=== PATIENT | female | born 1990 | race Caucasian/White ===

== ENCOUNTER 2016-04-05 10:00 | Outpatient (CLI) | payer OTHER | END 2016-04-05 10:01 | disposition home or self-care (01) | DX: R35.0 Frequency of micturition (principal); N89.8 Other specified noninflammatory disorders of vagina; R30.0 Dysuria ==

== ENCOUNTER 2016-04-16 19:05 | Emergency (ER) | payer OTHER | END 2016-04-16 19:47 | disposition home or self-care (01) | DX: N61.0 Mastitis without abscess (principal); Z87.891 Personal history of nicotine dependence ==

== ENCOUNTER 2022-05-02 14:40 | Outpatient (CLI) | payer OTHER | END 2022-05-02 23:59 | disposition critical access hospital (66) | LOC: EMS 14:40 | DX: K12.0 Recurrent oral aphthae (principal); R00.0 Tachycardia, unspecified; R42 Dizziness and giddiness; Z72.820 Sleep deprivation; F41.9 Anxiety disorder, unspecified | CPT/HCPCS: A0425; A0429 ==

== ENCOUNTER 2022-05-02 14:55 | Emergency (ER) | payer OTHER ==
[2022-05-02] MEDS ORDERED: ONDANSETRON ODT 4 MG TABLET TL STA (15:15)
[2022-05-02] MEDS ORDERED: diazePAM INJ 5 MG/ML SYRINGE IM STA (15:16)
--- NOTE | 2022-05-02 15:22 | ED Physician Documentation ---
History of Present Illness - Stated complaint Stated Complaint: MOUTH BURNING - Chief complaint Chief Complaint: General - History obtained from History obtained from: Patient - Additonal information Additional information: The patient comes to the emergency department via EMS for chief complaint of "mouth burning and panic attack". The patient states she has been very stressed out for the last 5 days because her 3 children have been sick and she has been up every night with them. She also states that her is gone with his job at the [employer]. He is not deployed but "flies a lot", she says. The patient states that she has had some cold-like symptoms, but has been trying to drink plenty of water, she estimates about 8 bottles a day. She states she "just feels really dehydrated" and that her mouth feels dry. No fevers or chills. Mild cough. She is a smoker. She has noticed an outbreak of canker sores all over her mouth and states that the pain keeps her up at night so she cannot sleep. She states she is also been feeling a little bit lightheaded. She has had some nausea but no vomiting. The patient has a history of anxiety and states that everything just came to ahead this afternoon. She being began having a panic attack and crying uncontrollably and called EMS to bring her here because she did not think she could drive. She states that a friend is watching her children at this time. She states her will be home in 2 days and told her that she "needs to get things figured out". She states her relationship with her is going well and that she misses him. No other complaints at this time. PD PAST MEDICAL HISTORY - Past Medical History Psych: Anxiety - Past Surgical History Past Surgical History: No - Present Medications Home Medications: Ambulatory Orders Medication Instructions Recorded Confirmed Fluconazole 150 mg PO ONCE PRN #1 tablet 03/03/16 04/16/16 Fluconazole [Diflucan] 150 mg PO ONCE PRN #1 tablet 04/16/16 Sertraline HCl [Zoloft] 100 mg PO DAILY 04/16/16 04/16/16 cephALEXin [Keflex] 500 mg PO QID #40 capsule 04/16/16 HYDROcod/ACETAM 5/325 [[place] 5/325] 1 - 2 tablet PO Q6H PRN #7 tablet 05/02/22 Lidocaine Viscous 2% [Xylocaine 5 ml MM Q4H PRN #100 ml 05/02/22 Viscous 2%] - Allergies Allergies/Adverse Reactions: Allergies Allergy/AdvReac Type Severity Reaction Status Date / Time No Known Drug Allergies Allergy Verified 05/02/22 15:11 - Social History Does the pt smoke?: Yes Smoking Status: Former smoker Does the pt drink ETOH?: No Does the pt have substance abuse?: No - Immunizations Immunizations are current?: Yes PD ED PE NORMAL - Vitals Vital signs reviewed: Yes - General General: Alert and oriented X 3, Well developed/nourished, Other (Very emotionally distraught female who is crying and hyper animated, but otherwise in no apparent distress.) - HEENT HEENT: Atraumatic, PERRL, EOMI, Moist mucous membranes, Pharynx benign (No erythema, exudates, or lesions.), Dentition benign, Other (2 aphthous ulcers noted on the right side of the tongue and one noted on the left. No other mucosal lesions/ulcerations noted.) - Neck Neck: Supple, no meningeal sign - Cardiac Cardiac: RRR, No murmur, Strong equal pulses - Respiratory Respiratory: No respiratory distress, Clear bilaterally - Abdomen Abdomen: Soft, Non tender, Non distended - Derm Derm: Normal color, Warm and dry, No rash - Extremities Extremities: No deformity, No edema - Neuro Neuro: Alert and oriented X 3, Other (Grossly intact) - Psych Psych: Other (Anxious, hyper animated, tearful ) Results - Vitals Vitals: Oxygen O2 Source Room air - Labs Labs: Laboratory Tests 05/02/22 05/02/22 05/02/22 15:23 15:23 15:30 WBC 6.6 RBC 4.14 L Hgb 12.9 Hct 38.5 MCV 93.0 MCH 31.2 H MCHC 33.5 RDW 12.3 Plt Count 274 MPV 9.2 Neut # (Auto) 4.2 Lymph # (Auto) 1.6 Castro # (Auto) 0.4 Eos # (Auto) 0.3 Baso # (Auto) 0.0 Absolute Nucleated RBC 0.00 Nucleated RBC % 0.0 Sodium 137 Potassium 3.3 L Chloride 103 Carbon Dioxide 24 Anion Gap 10.0 BUN 10 Creatinine 0.6 Estimated GFR (MDRD) 116 Glucose 102 H Calcium 9.6 Total Bilirubin 1.0 AST 30 ALT 28 Alkaline Phosphatase 42 Total Protein 7.4 Albumin 4.4 Globulin 3.0 Albumin/Globulin Ratio 1.5 Lipase 26 Nasal Adenovirus (PCR) NOT DETECTED Nasal B. parapertussis DNA (PCR) NOT DETECTED Nasal Coronavir 229E PCR NOT DETECTED Nasal Coronavir HKU1 PCR NOT DETECTED Nasal Coronavir NL63 PCR NOT DETECTED Nasal Coronavir OC43 PCR NOT DETECTED Nasal Enterovir/Rhinovir PCR NOT DETECTED Nasal Influenza B PCR NOT DETECTED Nasal Influenza A PCR NOT DETECTED Nasal Parainfluen 1 PCR NOT DETECTED Nasal Parainfluen 2 PCR NOT DETECTED Nasal Parainfluen 3 PCR NOT DETECTED Nasal Parainfluen 4 PCR NOT DETECTED Nasal RSV (PCR) NOT DETECTED Nasal B.pertussis DNA PCR NOT DETECTED Nasal C.pneumoniae (PCR) NOT DETECTED Mark Human Metapneumo PCR NOT DETECTED Nasal M.pneumoniae (PCR) NOT DETECTED Nasal SARS-CoV-2 (PCR) NOT DETECTED PD Medical Decision Making - ED course Complexity details: reviewed results, re-evaluated patient, considered differential, d/w patient ED course: The patient seemed to be extremely upset and not handling the stress of her general situation well. I discussed with her that it does sound like she has a viral illness and that there is not a lot specifically to be done for the aphthous ulcers, which must run their course and go away on their own. I will obtain a viral panel, CBC, and ER abdominal panel for the patient, just to try to help her gain some clarity. I do not find evidence that she is dehydrated and have encouraged her to continue to try to drink fluids. She has been given a dose of Zofran and Valium in the emergency department. Her laboratory studies were reviewed by me and unremarkable. The patient was improved clinically on reevaluation I felt she was stable for discharge home. Departure - Departure Disposition: 01 Home, Self Care Clinical Impression: Viral syndrome, Aphthous ulcer of mouth, Anxiety reaction Condition: Stable Instructions: ED Stress React, ED Canker Sore, ED Panic Attack, ED Viral Syndrome Prescriptions: HYDROcod/ACETAM 5/325 [[place] 5/325] 1 - 2 tablet PO Q6H PRN #7 tablet PRN Reason: Pain Lidocaine Viscous 2% [Xylocaine Viscous 2%] 5 ml MM Q4H PRN #100 ml PRN Reason: Mouth Sore Pain Comments: Your labs look good. As far as the sores in your mouth, most are caused by common viruses, though they can occasionally be caused by stress or localized trauma, such as biting the cheek, lip or tongue. Unfortunately, there is no quick fix for these and they have to go away on their own. You may take the liquid lidocaine that has been prescribed and mix it with an equal volume of Maalox and swish this around in your mouth to help with some of the discomfort. I will give you a couple of pain pills to help with your sleep, but you should not drive for at least 6 hours after taking these. A viral panel has been obtained and the results are pending at this time. As it can sometimes take a few hours for the test come back, we will let you go home, but we will call you if there are any significant positive results. You may also monitor for your results by going to her hospital website at [email or web address], clicking on the "my [facility]" tab, and signing up for the patient portal. Please follow-up at [facility] for further concerns. There is no evidence of a serious or emergent medical condition today. Discharge Date/Time: 05/02/22 16:38
[2022-05-02 15:31] LABS: BASOPHILS % (AUTO) 0.5 %; EOSINOPHILS # (AUTO) 0.3 10^3/uL (0.0-0.7); HCT - HEMATOCRIT 38.5 % (37.0-47.0); HGB - HEMOGLOBIN 12.9 g/dL (12.0-16.0); LYMPHOCYTES # (AUTO) 1.6 10^3/uL (1.5-3.5); MEAN CORPUSCULAR HEMOGLOBIN 31.2 pg (27.0-31.0); MEAN CORPUSCULAR HGB CONC 33.5 g/dL (32.0-36.0); MEAN PLATELET VOLUME 9.2 fL (7.9-10.8); MONOCYTES # (AUTO) 0.4 10^3/uL (0.0-1.0); MONOCYTES % (AUTO) 5.6 %; NEUTROPHILS # (AUTO) 4.2 10^3/uL (1.5-6.6); NEUTROPHILS % (AUTO) 64.7 %; PLT - PLATELET COUNT 274 10^3/uL (130-450); RED BLOOD COUNT 4.14 10^6/uL (4.20-5.40); RED CELL DISTRIBUTION WIDTH 12.3 % (12.0-15.0); WHITE BLOOD COUNT 6.6 x10^3/uL (4.8-10.8)
[2022-05-02 15:48] LABS: ALBUMIN 4.4 g/dL (3.2-5.5); ALBUMIN/GLOBULIN RATIO 1.5 (1.0-2.2); CALCIUM 9.6 mg/dL (8.5-10.3); CREATININE 0.6 mg/dL (0.4-1.0); POTASSIUM 3.3 mmol/L (3.5-5.0); TOTAL PROTEIN 7.4 g/dL (6.7-8.2)
[2022-05-02 16:29] LABS: CORONAVIRUS 229E-RESP PCR NOT DETECTED; CORONAVIRUS HKU1-RESP PCR NOT DETECTED; CORONAVIRUS NL63-RESP PCR NOT DETECTED; CORONAVIRUS OC43-RESP PCR NOT DETECTED; HUMAN METAPNEUMOVIRUS NOT DETECTED; INFLUENZA A- RESP PCR PANEL NOT DETECTED; RHINOVIRUS/ENTEROVIRUS NOT DETECTED; SARS-CoV-2 -RESP PCR PANEL NOT DETECTED
[2022-05-02 16:30] LABS: B. PARAPERTUSSIS- RESP PCR PAN NOT DETECTED; B. PERTUSSIS- RESP PCR PANEL NOT DETECTED; C. PNEUMONIAE- RESP PCR PANEL NOT DETECTED; INFLUENZA B - RESP PCR PANEL NOT DETECTED; M. PNEUMONIAE- RESP PCR PANEL NOT DETECTED; PARAINFLUENZA VIRUS 1 NOT DETECTED; PARAINFLUENZA VIRUS 2 NOT DETECTED; PARAINFLUENZA VIRUS 3 NOT DETECTED; PARAINFLUENZA VIRUS 4 NOT DETECTED; RSV- RESP PCR PANEL NOT DETECTED
[2022-05-02 16:39] VITALS: BP 126/84
== END 2022-05-02 16:38 | disposition home or self-care (01) ==
LOC: EDUNIT# → ED 14:55
DX: K12.0 Recurrent oral aphthae (principal); B34.9 Viral infection, unspecified; F41.1 Generalized anxiety disorder; F17.200 Nicotine dependence, unspecified, uncomplicated; Z20.822 Contact with and (suspected) exposure to COVID-19
CPT/HCPCS: 36415; 80053; 83690; 85025; 87633; 96372; 99283; 99284; Q0162